=== PATIENT | male | born 1960 | race Caucasian/White ===

== ENCOUNTER 2025-02-19 16:13 | Emergency (ER) | payer OTHER ==
[~2025-02-19] VITALS: Ht 195.6 cm; Wt 104.5 kg
[2025-02-19 16:44] VITALS: BP 142/72; PULSE 80; RESP 14; TEMP 97.9; O2SAT 94
[2025-02-19] MEDS: ACETAMINOPHEN 500 MG TABLET PO ONE (18:13)
[2025-02-19 18:41] LABS: PLATELET COUNT (AUTO) 269 K/uL (150-450); RED BLOOD CELL COUNT(AUTO) 5.01 MIL/uL (4.50-5.90); RED CELL DISTRIBUTION WIDTH 13.6 % (11.5-14.5); WHITE BLOOD COUNT (AUTO) 5.0 K/uL (4.5-11.0)
[2025-02-19 18:49] LABS: CALCIUM, TOTAL 8.9 mg/dL (8.8-10.5); CREATININE 0.93 mg/dL (0.60-1.30); GLOMERULAR FILTR. RATE CALC > 60 mL/min (>60); GLUCOSE,RANDOM 97 mg/dL (70-110); SODIUM SERUM 139 mmol/L (136-145); UREA NITROGEN, BLOOD 21 mg/dL (7-18)
[2025-02-19] MEDS: IBUPROFEN 400 MG TABLET PO ONE (19:26)
[2025-02-19] MEDS: BUPRENORPHINE HCL/NALOXONE HCL 8-2 MG SUBLINGUAL TABLET SL ONE (19:27)
[2025-02-19] MEDS: ONDANSETRON 4 MG TABLET PO ONE (19:27)
== END 2025-02-19 20:00 ==
LOC: EMS 16:13
DX: S09.90XA Unspecified injury of head, initial encounter (principal); F11.20 Opioid dependence, uncomplicated; Z88.0 Allergy status to penicillin; W10.9XXA Fall (on) (from) unspecified stairs and steps, initial encounter; Y93.89 Activity, other specified; Y92.89 Other specified places as the place of occurrence of the external cause
CPT/HCPCS: 99284; 70450; 80048; 85025; 36415; Q0162